=== PATIENT | male | born 1975 | race Two or more races ===

== ENCOUNTER 2020-04-08 11:43 | Emergency (ER) | payer SELFPAY ==
[~2020-04-08] VITALS: Ht 167.6 cm; Wt 81.6 kg
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
--- NOTE | 2020-04-08 11:57 | NUR ---
SEEN AND EXAMINED BY .
[2020-04-08] MEDS ORDERED: CYCLOBENZAPRINE 10 MG TABLET ONE (12:03)
[2020-04-08] MEDS ORDERED: KETOROLAC TROMETHAMINE INJ 30 MG/ML VIAL ONE (12:03)
[2020-04-08] MEDS: KETOROLAC TROMETHAMINE INJ 30 MG/ML VIAL IM ONE (12:05)
[2020-04-08] MEDS: CYCLOBENZAPRINE 10 MG TABLET PO ONE (12:05)
--- NOTE | 2020-04-08 12:08 | NUR ---
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
--- NOTE | 2020-04-08 13:40 | NUR ---
Patient discharged to home in stable condition. Written and verbal after care instructions given. Patient verbalizes understanding of instruction.
[2020-04-08 13:41] VITALS: BP 144/78
== END 2020-04-08 13:41 | disposition home or self-care (01) ==
LOC: ER 11:47
DX: S80.811A Abrasion, right lower leg, initial encounter (principal); M25.461 Effusion, right knee; R51 Headache; M54.2 Cervicalgia; M25.551 Pain in right hip; Z88.0 Allergy status to penicillin; V49.49XA Driver injured in collision with other motor vehicles in traffic accident, initial encounter; Y93.89 Activity, other specified; Y92.488 Other paved roadways as the place of occurrence of the external cause; Y99.8 Other external cause status
CPT/HCPCS: 70450; 71045; 72125; 73501; 73552; 73564; 73590; 96372; 99285; J1885